=== PATIENT | male | born 1975 | race Caucasian/White ===

== ENCOUNTER 2019-02-17 15:22 | Emergency (ER) | payer SELFPAY ==
[2019-02-17 16:07] LABS: Eosinophils % 1.7 % (0-4.4); Lymphocytes % 14.7 % (15.3-44.8); MPV 9.4 fL (7.6-11.3); Monocytes % 6.4 % (3.3-12.3); RBC Red Blood Cell Count 5.04 M/uL (4.33-5.43)
[2019-02-17 16:16] LABS: BUN Blood Urea Nitrogen 15 mg/dL (7-18); Bicarbonate 23 mmol/L (21-32); Glucose Level 84 mg/dL (74-106); Potassium 3.4 mmol/L (3.5-5.1); Sodium Level 139 mmol/L (136-145)
[2019-02-17] MEDS ORDERED: MORPHINE 4 MG/ML SYR ONE (17:21)
[2019-02-17] MEDS ORDERED: ONDANSETRON 4 MG/2 ML VIAL ONE (17:21)
[2019-02-17] MEDS ORDERED: TETANUS & DIPHTHERIA TOX,ADULT 0.5 ML VIAL ONE (17:22)
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
--- NOTE | 2019-02-17 17:35 | RAD REPORT ---
EXAM DESCRIPTION: Lucius Single View02/17/2019 4:00 pm CLINICAL HISTORY: Chest pain COMPARISON: none FINDINGS: The lungs appear clear of acute infiltrate. The heart is normal size IMPRESSION: No acute abnormalities displayed
[2019-02-17] MEDS ORDERED: LIDOCAINE 1% MPF 5 ML VIAL ONE (18:44)
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
== END 2019-02-17 20:24 | disposition home or self-care (01) ==
LOC: ER 15:22
PROC: 0JQ10ZZ Repair Face Subcutaneous Tissue and Fascia, Open Approach (ICD-10-PCS; principal; 2019-02-17)
DX: S01.81XA Laceration without foreign body of other part of head, initial encounter (principal); S20.229A Contusion of unspecified back wall of thorax, initial encounter; S00.81XA Abrasion of other part of head, initial encounter; V86.59XA Driver of other special all-terrain or other off-road motor vehicle injured in nontraffic accident, initial encounter; Z23 Encounter for immunization; F17.210 Nicotine dependence, cigarettes, uncomplicated
CPT/HCPCS: 36415; 70450; 71045; 71260; 72125; 74177; 80048; 85025; 90471; 90714; 96374; 96375; 99285; J2405; Q9967